=== PATIENT | male | born 1960 | race Two or more races ===

== ENCOUNTER → 2024-08-27 | Outpatient (CLI) | payer MEDICAID ==
[2024-08-27 10:08] LABS: Urine Bacteria None Seen /hpf (None Seen)
[2024-08-27 10:29] LABS: Basophils # (auto) 0.1 10 ^3/uL (0-0.2); Eosinophils # (auto) 0.1 10 ^3/uL (0-0.8); Hematocrit 48.3 % (41.0-53.0); Lymphocytes # (auto) 2.3 10 ^3/uL (0.4-5.4); Lymphocytes % (auto) 41.8 % (10.0-50.0); Mean Corpuscular Hemoglobin 32.3 pg (28.0-32.0); Mean Corpuscular Hgb Conc. 35.2 g/dL (32.0-36.0); Mean Corpuscular Volume 91.9 fL (80.0-100.0); Monocytes # (auto) 0.4 10 ^3/uL (0-1.3); Monocytes % (auto) 8.1 % (0.0-12.0); Neutrophils # (auto) 2.6 10 ^3/uL (1.6-8.6); Neutrophils % (auto) 48.1 % (37.0-80.0); Nucleated Red Blood Cells % 0.1 %; Platelet Count (auto) 302 10^3/uL (140-450); Red Blood Cells 5.25 10^6/uL (4.5-5.90); Red Cell Distribution Width 13.9 % (11.8-14.3); White Blood Cell 5.5 10^3/uL (4.4-10.8)
[2024-08-27 10:31] LABS: Urine Blood Negative /uL (Negative); Urine Clarity Clear (Clear); Urine Color Yellow (Yellow); Urine Mucus FEW (None Seen); Urine Protein, UAD Negative (Negative); Urine Specific Gravity 1.017 (1.001-1.035); Urine Squamous Epithelial Cell None Seen /hpf (<5); Urine Urobilinogen Normal (Negative); Urine WBC 1 /HPF (0-3); Urine pH 5.5 (5.0-9.0)
[2024-08-27 11:00] LABS: Alkaline Phosphatase 111 U/L (46-116); Anion Gap 9 (5-15); BUN/Creatinine Ratio 8.9 (10.0-20.0); Carbon Dioxide 27 mmol/L (20-31); Chloride 102 mmol/L (98-107); HDL Cholesterol 42 mg/dL (40-59); Potassium 4.1 mmol/L (3.5-5.1); Sodium 138 mmol/L (136-145)
[2024-08-27 11:01] LABS: Bilirubin, Total 0.5 mg/dL (0.2-1.0)
[2024-08-27 11:02] LABS: Alanine Aminotransferase 99 U/L (7-40); Albumin 5.4 g/dL (3.2-4.8); Aspartate Aminotransferase 56 U/L (13-40); Blood Urea Nitrogen 9 mg/dL (9-23); Calcium 11.2 mg/dL (8.7-10.4); Cholesterol 209 mg/dL (< 200); Glucose 152 mg/dL (74-106); LDL Cholesterol 149 mg/dL (< 100); Total Protein 8.7 g/dL (5.7-8.2); Triglycerides 251 mg/dL (< 150)
[2024-08-30 09:19] LABS: Hepatitis B Core Total AB React (Negative)
[2024-08-30 12:30] LABS: Hepatitis A Total Antibody Positive (Negative); Hepatitis B Surface Antibody Positive (Negative); Hepatitis B Surface Antigen Negative (Negative)
[2024-08-30 12:31] LABS: Hepatitis C Antibody Negative (Negative)
== END | disposition home or self-care (01) ==
LOC: LAB 09:43
PROVIDERS: ATTEND Nurse Practitioner Family
DX: Z11.3 Encounter for screening for infections with a predominantly sexual mode of transmission (principal); Z11.1 Encounter for screening for respiratory tuberculosis; E11.9 Type 2 diabetes mellitus without complications; E78.5 Hyperlipidemia, unspecified; E55.9 Vitamin D deficiency, unspecified; R35.1 Nocturia; Z00.01 Encounter for general adult medical examination with abnormal findings
CPT/HCPCS: 36415; 80053; 80061; 81001; 82306; 83036; 84153; 84443; 85025; 86703; 86704; 86706; 86708; 86803; 87340; 87389

== ENCOUNTER 2024-12-03 15:56 | Outpatient (CLI) | payer MEDICAID ==
[2024-12-03 16:34] LABS: Basophils # (auto) 0 10 ^3/uL (0-0.2); Basophils % (auto) 0.5 % (0.0-2.0); Eosinophils # (auto) 0.1 10 ^3/uL (0-0.8); Eosinophils % (auto) 0.9 % (0.0-7.0); Hematocrit 50.1 % (41.0-53.0); Hemoglobin 16.9 g/dL (13.5-17.5); Lymphocytes # (auto) 2.8 10 ^3/uL (0.4-5.4); Lymphocytes % (auto) 40.3 % (10.0-50.0); Mean Corpuscular Hemoglobin 30.7 pg (28.0-32.0); Mean Corpuscular Hgb Conc. 33.7 g/dL (32.0-36.0); Mean Corpuscular Volume 91.3 fL (80.0-100.0); Monocytes # (auto) 0.6 10 ^3/uL (0-1.3); Monocytes % (auto) 8.5 % (0.0-12.0); Neutrophils # (auto) 3.4 10 ^3/uL (1.6-8.6); Neutrophils % (auto) 49.8 % (37.0-80.0); Nucleated Red Blood Cells % 0.4 %; Platelet Count (auto) 266 10^3/uL (140-450); Red Blood Cells 5.48 10^6/uL (4.5-5.90); Red Cell Distribution Width 14.3 % (11.8-14.3); White Blood Cell 6.9 10^3/uL (4.4-10.8)
[2024-12-03 16:45] LABS: Alkaline Phosphatase 104 U/L (46-116); Anion Gap 9 (5-15); BUN/Creatinine Ratio 11.8 (10.0-20.0); Bilirubin, Total 0.3 mg/dL (0.2-1.0); Blood Urea Nitrogen 11 mg/dL (9-23); Calcium 9.5 mg/dL (8.7-10.4); Carbon Dioxide 25 mmol/L (20-31); Potassium 4.4 mmol/L (3.5-5.1); Sodium 142 mmol/L (136-145); Total Protein 7.7 g/dL (5.7-8.2)
[2024-12-03 16:50] LABS: Alanine Aminotransferase 75 U/L (7-40); Albumin 4.8 g/dL (3.2-4.8); Aspartate Aminotransferase 51 U/L (<34); Chloride 108 mmol/L (98-107); Glucose 113 mg/dL (74-106)
[2024-12-04 06:07] LABS: Basos 0 % (Not Estab.); Eos 1 % (Not Estab.); Hematocrit 49.8 % (37.5-51.0); Hemoglobin 16.6 g/dL (13.0-17.7); Immature Granulocytes (Abs) 0 x10E3/uL (0.0-0.1); Lymphs 43 % (Not Estab.); Lymphs (Absolute) 2.5 x10E3/uL (0.7-3.1); MCHC 33.3 g/dL (31.5-35.7); MCV 90 fL (79-97); Monocytes 9 % (Not Estab.); Monocytes (Absolute) 0.5 x10E3/uL (0.1-0.9); Neutrophils 46 % (Not Estab.); Neutrophils (Absolute) 2.7 x10E3/uL (1.4-7.0); Platelets 311 x10E3/uL (150-450); RBC 5.54 x10E6/uL (4.14-5.80); WBC 5.7 x10E3/uL (3.4-10.8)
[2024-12-04 10:07] LABS: % CD 4 Pos Lymph 25.7 % (30.8-58.5); % CD 8 Pos Lymph 34.2 % (12.0-35.5); Absolute CD 4 Helper 643 /uL (359-1519); CD4/CD8 Ratio 0.75 (0.92-3.72)
[2024-12-05 10:07] LABS: Chlamydia Trachomatis, NAA Negative (Negative); Neisseria gonorrhoeae, NAA Negative (Negative)
[2024-12-06 10:34] LABS: Hepatitis B Core Total AB React (Negative)
[2024-12-06 10:59] LABS: Hepatitis A Total Antibody Positive (Negative); Hepatitis B Surface Antibody Positive (Negative); Hepatitis B Surface Antigen Negative (Negative); Hepatitis C Antibody Negative (Negative)
== END 2024-12-03 17:00 | disposition home or self-care (01) ==
LOC: LAB 15:56
PROVIDERS: ATTEND Specialist
DX: B20 Human immunodeficiency virus [HIV] disease (principal); A53.9 Syphilis, unspecified; R94.5 Abnormal results of liver function studies
CPT/HCPCS: 36415; 80053; 85025; 86360; 86592; 86704; 86706; 86708; 86780; 86803; 87340; 87536

== ENCOUNTER → 2024-12-13 | Outpatient (CLI) | payer MEDICAID ==
[2024-12-13 10:18] LABS: Urine Bacteria None Seen /hpf (None Seen)
[2024-12-13 10:34] LABS: Basophils # (auto) 0 10 ^3/uL (0-0.2); Basophils % (auto) 0.7 % (0.0-2.0); Eosinophils # (auto) 0 10 ^3/uL (0-0.8); Eosinophils % (auto) 0.8 % (0.0-7.0); Hematocrit 48.4 % (41.0-53.0); Hemoglobin 16.6 g/dL (13.5-17.5); Lymphocytes # (auto) 2.1 10 ^3/uL (0.4-5.4); Lymphocytes % (auto) 44.5 % (10.0-50.0); Mean Corpuscular Hemoglobin 31.1 pg (28.0-32.0); Mean Corpuscular Hgb Conc. 34.3 g/dL (32.0-36.0); Mean Corpuscular Volume 90.6 fL (80.0-100.0); Monocytes # (auto) 0.4 10 ^3/uL (0-1.3); Monocytes % (auto) 8.7 % (0.0-12.0); Neutrophils # (auto) 2.1 10 ^3/uL (1.6-8.6); Neutrophils % (auto) 45.3 % (37.0-80.0); Platelet Count (auto) 331 10^3/uL (140-450); Red Blood Cells 5.34 10^6/uL (4.5-5.90); Red Cell Distribution Width 13.9 % (11.8-14.3); White Blood Cell 4.7 10^3/uL (4.4-10.8)
[2024-12-13 10:49] LABS: Urine Blood Negative /uL (Negative); Urine Clarity Clear (Clear); Urine Color Yellow (Yellow); Urine Mucus FEW (None Seen); Urine Protein, UAD Negative (Negative); Urine Specific Gravity 1.021 (1.001-1.035); Urine Squamous Epithelial Cell None Seen /hpf (<5); Urine Urobilinogen Normal (Negative); Urine WBC 1 /HPF (0-3); Urine pH 5.5 (5.0-9.0)
[2024-12-13 11:02] LABS: Albumin 4.6 g/dL (3.2-4.8); Alkaline Phosphatase 79 U/L (46-116); Anion Gap 10 (5-15); Aspartate Aminotransferase 38 U/L (13-40); BUN/Creatinine Ratio 10.1 (10.0-20.0); Blood Urea Nitrogen 10 mg/dL (9-23); Calcium 9.6 mg/dL (8.7-10.4); Carbon Dioxide 26 mmol/L (20-31); Chloride 105 mmol/L (98-107); Potassium 4.2 mmol/L (3.5-5.1); Sodium 141 mmol/L (136-145); Total Protein 7.3 g/dL (5.7-8.2)
[2024-12-13 11:03] LABS: Bilirubin, Total 0.4 mg/dL (0.2-1.0); Cholesterol 163 mg/dL (< 200)
[2024-12-13 11:04] LABS: Alanine Aminotransferase 61 U/L (7-40); Glucose 108 mg/dL (74-106); HDL Cholesterol 33 mg/dL (40-59); LDL Cholesterol 115 mg/dL (< 100); Triglycerides 248 mg/dL (< 150)
[2024-12-13 13:04] LABS: Hepatitis A Total Antibody Positive (Negative)
[2024-12-13 13:05] LABS: Hepatitis B Surface Antibody Positive (Negative); Hepatitis B Surface Antigen Negative (Negative); Hepatitis C Antibody Negative (Negative)
[2024-12-13 13:07] LABS: Hepatitis B Core Total AB Positive (Negative)
== END | disposition home or self-care (01) ==
LOC: LAB 10:02
PROVIDERS: ATTEND Student in an Organized Health Care Education/Training Program
DX: E11.9 Type 2 diabetes mellitus without complications (principal); E55.9 Vitamin D deficiency, unspecified; E78.5 Hyperlipidemia, unspecified; R79.89 Other specified abnormal findings of blood chemistry
CPT/HCPCS: 36415; 80053; 80061; 81001; 82306; 83036; 84443; 85025; 86704; 86706; 86708; 86803; 87340

== ENCOUNTER 2025-02-21 09:32 | Outpatient (CLI) | payer MEDICAID ==
[2025-02-21 10:22] LABS: Hematocrit 47.7 % (41.0-53.0); Hemoglobin 16.3 g/dL (13.5-17.5); Mean Corpuscular Hemoglobin 30.7 pg (28.0-32.0); Mean Corpuscular Volume 89.8 fL (80.0-100.0); Nucleated Red Blood Cells % 0.3 %
[2025-02-21 10:33] LABS: Urine Protein, UAD Negative (Negative)
[2025-02-21 10:57] LABS: Microalb/Creat Ratio, Urine 42.0
[2025-02-21 10:58] LABS: Albumin 4.5 g/dL (3.2-4.8); Alkaline Phosphatase 71 U/L (46-116); Anion Gap 10 (5-15); BUN/Creatinine Ratio 6.8 (10.0-20.0); Bilirubin, Total 0.5 mg/dL (0.2-1.0); Calcium 8.9 mg/dL (8.7-10.4); Carbon Dioxide 24 mmol/L (20-31); Chloride 107 mmol/L (98-107); Cholesterol 175 mg/dL (< 200); Glucose 102 mg/dL (74-106); Potassium 4.2 mmol/L (3.5-5.1); Sodium 141 mmol/L (136-145); Total Protein 7.6 g/dL (5.7-8.2)
[2025-02-21 11:01] LABS: Alanine Aminotransferase 43 U/L (7-40); Blood Urea Nitrogen 6 mg/dL (9-23); HDL Cholesterol 36 mg/dL (40-59); Triglycerides 223 mg/dL (< 150)
== END 2025-02-21 17:00 | disposition home or self-care (01) ==
LOC: LAB 09:32
PROVIDERS: ATTEND Nurse Practitioner Family
DX: I10 Essential (primary) hypertension (principal); E11.42 Type 2 diabetes mellitus with diabetic polyneuropathy; E78.2 Mixed hyperlipidemia; R79.89 Other specified abnormal findings of blood chemistry
CPT/HCPCS: 36415; 80053; 80061; 81001; 82043; 82306; 82570; 82607; 83036; 84443; 85025

== ENCOUNTER → 2025-03-04 | Outpatient (CLI) | payer MEDICAID | END | disposition home or self-care (01) | LOC: LAB 08:42 | PROVIDERS: ATTEND Nurse Practitioner Family | DX: R22.43 Localized swelling, mass and lump, lower limb, bilateral (principal) | CPT/HCPCS: 83880 ==

== ENCOUNTER → 2025-03-31 | Outpatient (CLI) | payer MEDICAID ==
[2025-03-31 12:19] LABS: Hematocrit 51.4 % (41.0-53.0); Hemoglobin 17.6 g/dL (13.5-17.5); Mean Corpuscular Hemoglobin 30.7 pg (28.0-32.0); Mean Corpuscular Volume 89.8 fL (80.0-100.0); Nucleated Red Blood Cells % 0.2 %
[2025-03-31 13:04] LABS: Alkaline Phosphatase 83 U/L (46-116); Anion Gap 11 (5-15); BUN/Creatinine Ratio 9.9 (10.0-20.0); Blood Urea Nitrogen 10 mg/dL (9-23); Calcium 9.4 mg/dL (8.7-10.4); Carbon Dioxide 26 mmol/L (20-31); Chloride 103 mmol/L (98-107); Potassium 4.4 mmol/L (3.5-5.1); Sodium 140 mmol/L (136-145); Total Protein 8.0 g/dL (5.7-8.2)
[2025-03-31 13:05] LABS: Alanine Aminotransferase 50 U/L (7-40); Albumin 4.9 g/dL (3.2-4.8); Bilirubin, Total 0.5 mg/dL (0.2-1.0); Glucose 137 mg/dL (74-106)
[2025-04-01 05:08] LABS: Hematocrit 51.5 % (37.5-51.0); Hemoglobin 17.5 g/dL (13.0-17.7); MCH 30.8 pg (26.6-33.0); MCHC 34.0 g/dL (31.5-35.7); MCV 91 fL (79-97); RBC 5.68 x10E6/uL (4.14-5.80); RDW 14.2 % (11.6-15.4); WBC 5.8 x10E3/uL (3.4-10.8)
[2025-04-01 09:07] LABS: CD4/CD8 Ratio 0.72 (0.92-3.72)
== END | disposition home or self-care (01) ==
LOC: LAB 11:33
PROVIDERS: ATTEND Specialist
DX: R94.5 Abnormal results of liver function studies (principal); B20 Human immunodeficiency virus [HIV] disease
CPT/HCPCS: 36415; 80053; 85025; 86360; 87536

== ENCOUNTER 2025-05-31 09:21 | Outpatient (CLI) | payer MEDICAID ==
[2025-05-31 10:22] LABS: Hematocrit 49.2 % (41.0-53.0); Hemoglobin 16.7 g/dL (13.5-17.5); Mean Corpuscular Hemoglobin 30.7 pg (28.0-32.0); Mean Corpuscular Volume 90.5 fL (80.0-100.0); Nucleated Red Blood Cells % 0.0 %
[2025-05-31 10:26] LABS: Urine Protein, UAD Negative (Negative)
[2025-05-31 10:39] LABS: Alanine Aminotransferase 36 U/L (7-40); Alkaline Phosphatase 84 U/L (46-116); Anion Gap 11 (5-15); BUN/Creatinine Ratio 7.9 (10.0-20.0); Calcium 9.6 mg/dL (8.7-10.4); Carbon Dioxide 27 mmol/L (20-31); Chloride 104 mmol/L (98-107); Potassium 4.3 mmol/L (3.5-5.1); Sodium 142 mmol/L (136-145); Total Protein 7.9 g/dL (5.7-8.2)
[2025-05-31 10:40] LABS: Albumin 4.7 g/dL (3.2-4.8); Bilirubin, Total 0.6 mg/dL (0.2-1.0); Cholesterol 173 mg/dL (< 200)
[2025-05-31 10:46] LABS: Blood Urea Nitrogen 8 mg/dL (9-23); Glucose 117 mg/dL (74-106); HDL Cholesterol 38 mg/dL (40-59); Microalb/Creat Ratio, Urine 9.0
[2025-05-31 10:56] LABS: Triglycerides 178 mg/dL (< 150)
== END 2025-05-31 17:00 | disposition home or self-care (01) ==
LOC: LAB 09:21
PROVIDERS: ATTEND Nurse Practitioner Family
DX: E11.9 Type 2 diabetes mellitus without complications (principal); E78.5 Hyperlipidemia, unspecified; E55.9 Vitamin D deficiency, unspecified; R79.89 Other specified abnormal findings of blood chemistry
CPT/HCPCS: 36415; 80053; 80061; 81001; 82043; 82306; 82570; 83036; 84443; 85025